=== PATIENT | male | born 1950 | race Caucasian/White ===

== ENCOUNTER 2025-06-29 09:22 | Emergency (ER) | payer MEDICARE, MEDICAID ==
[~2025-06-29] VITALS: Ht 170.2 cm; Wt 82.0 kg
[2025-06-29 09:28] VITALS: O2SAT 96
[2025-06-29 09:56] LABS: BASOPHILS % 0.6 % (0.0-2.0); EOSINOPHILS % 3.4 % (0.0-5.0); HEMATOCRIT. 42.1 % (42.0-52.0); HEMOGLOBIN. 14.2 g/dL (14.0-18.0); LYMPHOCYTES % 42.3 % (20.0-50.0); MEAN PLATELET VOLUME 7.0 fl (7.4-10.4); MONOCYTES % 6.1 % (2.0-8.0); NEUTROPHILS % 47.6 % (40.0-76.0); PLATELET 183 x1000/uL (130-400); RED BLOOD CELL COUNT 4.65 mill/uL (4.7-6.1); RED CELL DISTRIBUTION WIDTH 14.5 % (11.6-14.6)
[2025-06-29] MEDS: KETOROLAC 15MG/ML VIAL IV ONE (10:03)
[2025-06-29 10:08] VITALS: TEMP 37.1
[2025-06-29 10:09] LABS: CREATININE 0.8 mg/dL (0.6-1.3); UREA NITROGEN BLOOD 9 mg/dL (9-23)
[2025-06-29 10:10] LABS: TROPONIN I HIGH SENSITIVITY < 4 ng/L (3.0-53)
[2025-06-29] MEDS ORDERED: TOPUD PO (10:48)
[2025-06-29 11:56] VITALS: BP 122/72; PULSE 83; RESP 16; O2SAT 97
== END 2025-06-29 12:12 | disposition home or self-care (01) ==
LOC: ER 10:37
DX: S29.9XXA Unspecified injury of thorax, initial encounter (principal); E78.5 Hyperlipidemia, unspecified; I10 Essential (primary) hypertension; V43.52XA Car driver injured in collision with other type car in traffic accident, initial encounter; Y93.89 Activity, other specified; Y92.410 Unspecified street and highway as the place of occurrence of the external cause; Y99.8 Other external cause status
CPT/HCPCS: 99285; 96374; 71045; 80048; 85025; 84484; 36415; 93005; J1885